=== PATIENT | female | born 1940 | race African-American/Black ===

== ENCOUNTER → 2017-01-04 | Outpatient (CLI) | payer MEDICARE, OTHER ==
[2016-05-27 21:07] VITALS: BP 145/71
[~2017-01-04] MED LIST: AMLO5TAB2 PO; ASCO250T2 PO; ASPI81TA2 PO; BUDE10.2 IH; BUPR100T8 PO; CARV25TA2 PO; CHOL2000 PO; CIPR250T PO; CLON0.1T PO; CLOP75TA27 PO; CRESTOR20 MG PO; FAMO-63 PO; FLUT30CR TP; GABA-585 PO; GLIP5TAB22 PO; INSU100I13 SQ; LANS30CA PO; LORA10TA3 PO; MEMA28CA PO; Nicotine TD; ONDA8TAB12 PO; POLY2500 PO; SPIR25TA3 PO
[2017-01-04 08:24] LABS: DIRECT BILIRUBIN 0.1 mg/dL (0.0-0.2); TOTAL BILIRUBIN 0.4 mg/dL (0.2-1.0)
== END | disposition home or self-care (01) ==
LOC: LAB 07:41
PROVIDERS: ATTEND Internal Medicine Interventional Cardiology
DX: I25.10 Atherosclerotic heart disease of native coronary artery without angina pectoris (principal); E78.5 Hyperlipidemia, unspecified
CPT/HCPCS: 36415; 80061; 80076

== ENCOUNTER → 2017-02-09 | Outpatient (CLI) | payer MEDICARE, OTHER ==
[2016-05-27 21:07] VITALS: BP 145/71
[2017-02-09 10:06] LABS: CALCIUM 9.9 mg/dL (8.5-10.1); CREATININE 1.3 mg/dL (0.6-1.0); GFR 47.9; POTASSIUM 4.5 mmol/L (3.5-5.1)
== END | disposition home or self-care (01) ==
LOC: LAB 09:29
PROVIDERS: ATTEND Internal Medicine Interventional Cardiology
DX: I10 Essential (primary) hypertension (principal)
CPT/HCPCS: 36415; 80048